=== PATIENT | male | born 1990 | race Caucasian/White ===

== ENCOUNTER 2024-04-18 17:55 | Emergency (ER) | payer OTHER, SELFPAY ==
[2024-04-18 17:56] VITALS: BP 156/86; PULSE 89; RESP 16; TEMP 36.4; O2SAT 100; BMI 24.6
--- NOTE | 2024-04-18 17:59 | RAD_ITS ---
STUDY: X-RAY - LEFT FOOT CLINICAL: Male, 33 years old. STEPPED ON NAIL TECHNIQUE: 3 view(s) of the foot. COMPARISON: None. FINDINGS: Normal talus, calcaneus, and tarsal bones. Normal visualized subtalar, talonavicular, calcaneocuboid, tarsal and tarsometatarsal articulations. Normal metatarsi. Normal metatarsophalangeal joint of the great toe. Normal tibial and fibular sesamoid bones. Normal interphalangeal joint of the great toe. Normal phalanges of the great toe. Normal second through fifth metatarsophalangeal joints. Normal interphalangeal joints and phalanges of the lesser toes. Soft tissue swelling of the plantar surface of the distal foot without radiopaque foreign body in the soft tissues. RAD/Foot min 3 Views IMPRESSION: Soft tissue swelling of the plantar surface of the distal foot without foreign body in the soft tissues or acute fracture Electronically Signed: Samuel Giraldo MD at 18:37 EDT ,
--- NOTE | 2024-04-18 19:09 | EDS_ITS ---
HPI History of Present Illness Chief Complaint: Wound Narrative Narrative: 33-year-old male who denies significant past medical history presents with injury to his left foot that he sustained at work yesterday. 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 He was wearing shoes at the time. He now has pain that is worse with weightbearing and standing mainly in the ball of his left foot. He denies any fever or drainage of pus from the wound, but states that he pressed on it while in the emergency department and a small black piece of rubber may have come out of it. He presents because of the pain. This is his first report of injury, a day later. [facility] Home Medications ?Medication ?Instructions ?Recorded ?Last Taken ?Type No Known/Unobtainable [No Known 09/20/14 Unknown History Home Medications] ciprofloxacin HCl 500 mg tablet 500 mg PO BID #14 tabs 04/18/24 Unknown Rx (Cipro) Allergy/AdvReac Type Severity Reaction Status Date / Time No Known Allergies Allergy Verified 04/18/24 17:59 Social History Smoking Status: Current every day smoker tobacco type: cigarettes ROS ROS ED ROS Narrative Constitutional: No fever, no chills. HEENT: No sore throat. No neck pain. No loss of vision. No rhinorrhea. Cardiovascular: No chest pain. No palpitations. No pedal edema. Respiratory: No cough, no shortness of breath. Abdominal: No abdominal pain. No nausea. No vomiting. Genitourinary: No dysuria. No hematuria. Musculoskeletal: Positive injury to ball of left foot, and middle of plantar aspect of left foot. No drainage of pus. No erythema. Neurologic: No headaches. No dizziness. No lightheadedness. Skin: No rash. No change in color. Psychiatric: No depression. No anxiety. EXAM Physical Exam Narrative Exam Narrative: Afebrile. Vital signs noted. Focused physical examination shows puncture wound in the middle of the foot, towards the ball of the foot, no active bleeding, no surrounding erythema, no purulent drainage. Palpable dorsalis pedis pulse. Uninjured ankle and above. Const Vital Signs: 04/18/24 17:56 Temperature 97.6 F L Temperature Source Temporal Pulse Rate 89 Respiratory Rate 16 Blood Pressure 156/86 H Blood Pressure Mean 109 Pulse Ox 100 Oxygen Delivery Method Room Air MDM MDM MDM Narrative Medical decision making narrative: I do not feel differential diagnosis is applicable in this case. X-rays of the left foot were obtained through nursing protocol and interpreted by myself independently as evidence of fracture, no radiopaque foreign body. There is soft tissue swelling. I reviewed the radiology report which confirms my independent interpretation. He has had a plantar puncture wound through his shoe. He was given his first dose of ciprofloxacin prescription written for the next 7 days. [facility] was [facility] to the [facility] or [facility] for follow-up. He was placed in a postoperative shoe and will take [id number] medications. He was given work limitations. He should be able to wear the postoperative shoe, and allowed to sit for comfort. This should be an place until cleared by the [facility] provider. I feel he be discharged safely home with follow-up. Return instructions reviewed. Disposition is discharged home in stable condition. Radiography Diagnostic Testing: Clinical Impression(s) from Imaging Studies Foot X-Ray 04/18/24 17:59 IMPRESSION: Soft tissue swelling of the plantar surface of the distal foot without foreign body in the soft tissues or acute fracture Electronically Signed: Samuel Giraldo MD at 18:37 EDT , Discharge Plan Triage Chief Complaint: Wound ED Provider: Justen Peter Dx/Rx/DC Orders Clinical Impression: Puncture wound of plantar aspect of left foot, Foot injury Instructions: ED Puncture Wound (Foot) Prescriptions: New ciprofloxacin HCl [Cipro] 500 mg tablet 500 mg PO BID Qty: 14 0RF No Action No Known Home Medications Primary Care Provider: Dillon Edwards Referrals: [facility] [Group of Physicians] - 3-5 Days Dillon Edwards MD [Primary Care Provider] - [facility] [Non-Staff] - 3-5 Days Activity Restrictions/Additional Instructions: Take Tylenol or ibuprofen as needed for pain. Follow-up with [facility] for return to work. Take antibiotic as directed. Return to the emergency department with fever, drainage of pus from wound, red streak up your foot, new or worsening symptoms. Print Language: Jamaican Disposition Disposition: Home, Self Care
[2024-04-18] MEDS: Ciprofloxacin 500 MG Tablet PO (19:10)
== END 2024-04-18 19:37 | disposition home or self-care (01) ==
LOC: ED 19:05
PROVIDERS: Emergency Provider Emergency Medicine; PCP Family Medicine; Visit Provider Emergency Medicine
DX: S91.332A Puncture wound without foreign body, left foot, initial encounter (principal); F17.210 Nicotine dependence, cigarettes, uncomplicated; W22.8XXA Striking against or struck by other objects, initial encounter; Y99.0 Civilian activity done for income or pay; Y92.89 Other specified places as the place of occurrence of the external cause
CPT/HCPCS: 73630; 99283

== ENCOUNTER 2024-06-12 16:46 | Emergency (ER) | payer SELFPAY ==
[2024-06-12 16:47] VITALS: BP 146/95; PULSE 71; RESP 16; TEMP 36.8; O2SAT 99; BMI 24.0
--- NOTE | 2024-06-12 20:18 | ED.VIS.DENTA ---
HPI History of Present Illness Chief Complaint: Dental Informant: patient Onset/Context/Timing Onset: Days Context: Gradual Onset Timing: Continuous Quality: Sharp Location: Right upper second molar Worsened by: Eating, drinking Relieved by: - (Nothing) Associated Symptoms Assocated Symptom - Dental: jaw swelling, cold sensitivity and hot sensitivity; Negative for fever or face swelling Narrative Narrative: Patient presents with upper dental pain that has been getting worse over the past few days. Patient states it is gradually gotten worse. Patient states it is sharp. Patient states it is worse over the right upper second molar. Patient states the left upper second molar also has been broken. Patient states his pain is worse with any eating or drinking. Patient admits to hot and cold sensitivity. Patient states he feels like there is some mild swelling in his right upper jaw. Patient denies any fevers or chills. Patient states he has a dentist appointment in mid July. [facility] Medical History (Updated 06/12/24 @ 20:[address] Spenser Johnson DO) Asthma Home Medications ?Medication ?Instructions ?Recorded ?Last Taken ?Type penicillin V potassium 500 mg 500 mg PO 4X/DAY #40 tabs 06/12/24 Unknown Rx tablet Allergy/AdvReac Type Severity Reaction Status Date / Time No Known Allergies Allergy Verified 06/12/24 16:47 Surgical History no surgical history no surgical history Social History Smoking Status: Current every day smoker tobacco type: cigarettes ROS ROS ED Constitutional Constitutional ED: Denies chills or fever(s) Eyes Eyes: Denies blurry vision or change in vision ENT ENT ED: Reports sore throat; Denies rhinorrhea Cardiovascular Cardiovascular: Denies chest pain or palpitations Respiratory/Chest Respiratory/Chest: Denies cough or dyspnea Gastrointestinal Gastrointestinal: Denies nausea or vomiting Genitourinary Genitourinary ED: Denies dysuria or hematuria Musculoskeletal Musculoskeletal: Denies back pain or neck pain Integumentary Denies abscess or rash Neurologic Neurologic: Denies headache(s) or weakness Allergic/Immunologic Allergic/Immunologic ED: Denies mouth swelling or urticaria EXAM Physical Exam Const Vital Signs: 06/12/24 16:47 Temperature 98.2 F Temperature Source Oral Pulse Rate 71 Respiratory Rate 16 Blood Pressure 146/95 H Blood Pressure Mean 112 Pulse Ox 99 Oxygen Delivery Method Room Air Positive well nourished and well developed General Appearance ED: well developed and NAD HEENT HEENT Narrative: There is tenderness to percussion over the right upper second molar. There is mild gingival edema around this tooth. There is a large dental carry noted. There is also a dental fracture over the left upper second molar. There is no gingival edema. There is no tenderness. Oral mucosa is pink and moist. Oropharynx is clear. Airway is patent. Neck is supple. Trachea is midline. There is no JVD or lymphadenopathy. There is no sublingual edema or evidence of Johnson's angina. Mouth ED: Yes oral and palatal mucosa normal Mouth: oral and palatal mucosa normal Neck supple and no JVD Resp normal respiratory effort and clear to auscultation bilaterally GI non-tender and non-distended Neuro oriented x3, CN's II-XII intact bilaterally, moves all extremities, no focal motor deficits and no sensory deficits noted Sensorium / Orientation: alert Motor Exam: strength 5/5 throughout Psych mental status grossly normal MDM MDM MDM Narrative Medical decision making narrative: Smoking cessation was discussed. Patient was advised that this is most likely infected dental carry. Patient was given a dose of Pen-Vee K here. Patient was given a prescription for Pen-Vee K. Patient was instructed to follow-up with his dentist as scheduled. Patient was also given a dental referral list to see if he could find a dentist that would see him sooner. Patient was instructed to take Tylenol or ibuprofen as needed for pain. Patient was instructed to return if worse in any way. Patient understood and was agreeable with the plan. All questions were answered. Discharge Plan Triage Chief Complaint: Dental ED Provider: Spenser Johnson Dx/Rx/DC Orders Clinical Impression: Infected dental caries, Tobacco use disorder Instructions: ED Dental Pain Prescriptions: New penicillin V potassium 500 mg tablet 500 mg PO 4X/DAY Qty: 40 0RF Primary Care Provider: Dillon Edwards Referrals: Dillon Edwards MD [Primary Care Provider] - 5-7 Days Dentist,Your [STAFF PHYSICIAN] - Keep Crissy appointment Print Language: Japanese Disposition Disposition: Home, Self Care
[2024-06-12] MEDS: Penicillin Vk 250 MG Tablet 500 MG PO (20:40)
[2024-06-12] MEDS: Ibuprofen 400 MG Tablet 800 MG PO (20:40)
[2024-06-12 20:42] VITALS: BP 126/70; PULSE 69; RESP 18; TEMP 36.9; O2SAT 97
== END 2024-06-12 20:42 | disposition home or self-care (01) ==
PROVIDERS: Emergency Provider Emergency Medicine; PCP Family Medicine; Visit Provider Emergency Medicine
DX: K02.9 Dental caries, unspecified (principal); F17.210 Nicotine dependence, cigarettes, uncomplicated
CPT/HCPCS: 99283